=== PATIENT | female | born 1990 | race Two or more races ===

== ENCOUNTER 2024-10-02 20:20 | Emergency (ER) | payer OTHER ==
[~2024-10-02] VITALS: Ht 160 cm; Wt 94.5 kg
[2024-10-02 20:24] VITALS: TEMP 98.2
[2024-10-02] MEDS ORDERED: LISI5TAB21 PO (20:35)
[2024-10-02] MEDS ORDERED: METHI10 PO (20:35)
[2024-10-02 23:13] VITALS: BP 139/84; PULSE 88; RESP 18; O2SAT 99
[2024-10-02] MEDS ORDERED: IBUP-1492 PO (23:19)
== END 2024-10-02 23:25 | disposition home or self-care (01) ==
LOC: EMS 20:20
DX: M79.605 Pain in left leg (principal); E84.9 Cystic fibrosis, unspecified; I10 Essential (primary) hypertension; Z90.49 Acquired absence of other specified parts of digestive tract; Z79.899 Other long term (current) drug therapy
CPT/HCPCS: 93971; 99284; Z7502